=== PATIENT | female | born 1970 | race Caucasian/White ===

== ENCOUNTER 2016-12-18 06:29 | Day surgery (SDC) | payer BC ==
[~2016-12-18] VITALS: Ht 165.1 cm; Wt 84.1 kg
[~2016-12-18 06:29] MED LIST: FIORTAB4 PO; LEXA10TA PO; LISI-360 PO; OMEP20TA39 PO; ROPI.5 PO; ZANA4CAP PO
[2016-12-18 06:54] VITALS: BP 136/81; PULSE 59; RESP 20; TEMP 97.9; O2SAT 92
[2016-12-18] MEDS ORDERED: DULO1CAP2 PO (07:37)
[2016-12-18] MEDS ORDERED: SELE1TAB PO (07:37)
[2016-12-18] MEDS ORDERED: CHLO25TA2 PO (07:37)
[2016-12-18] MEDS ORDERED: MAGN500T5 PO (07:37)
[2016-12-18] MEDS ORDERED: VITA500S3 SL (07:37)
[2016-12-18] MEDS ORDERED: FLAX100013 (07:37)
[2016-12-18] MEDS ORDERED: POTA-163 PO (07:37)
[2016-12-18] MEDS ORDERED: ROPI0.5T PO (07:37)
[2016-12-18] MEDS ORDERED: PROP120C PO (07:37)
[2016-12-18] MEDS ORDERED: ATOR40TA16 PO (07:37)
[2016-12-18] MEDS ORDERED: FISH1000 (07:37)
[2016-12-18] MEDS ORDERED: CLON0.1T PO (07:37)
[2016-12-18] MEDS ORDERED: ESTR0.5T PO (07:37)
[2016-12-18] MEDS ORDERED: GABA300C5 PO (07:37)
[2016-12-18] MEDS ORDERED: LIOT5TAB3 PO (07:37)
[2016-12-18] MEDS ORDERED: LEVO.125 PO (07:37)
[2016-12-18] MEDS ORDERED: LEVE500T8 PO (07:37)
[2016-12-18] MEDS ORDERED: SODIUM CHLOR 0.9% 1000 ML INJ 1,000 ML IV SCH (07:45)
[2016-12-18 09:20] VITALS: BP 122/69; PULSE 56; RESP 16; TEMP 98.2; O2SAT 96
--- NOTE | 2016-12-18 09:26 | PD.RAD ---
Post Procedure Progress Note Pre Procedure Diagnosis: (1) Headache (2) Weakness Post Procedure Diagnosis: (1) Headache (2) Weakness Procedure Date: Dec 18, 2016 Supervising Radiologist: Chinmay Pozo Proceduralist/Assist: Cabrera Severino, RT(R), Kareem Nolasco, RT(R), Che Jaeger, RT(R) Anesthesia: Local Plan of Activity Patient to Unit: ROPU Patient Condition: Good See PACS Report for procedural detail/treatment Spinal Procedure Lumbar Puncture L3 Fluid Removal (CCs): 17 Fluid Description: Clear Puncture Time: 09:05 Findings: OP: 19.5 cmH2O CP: 12 cmH2O Chinmay Pozo MD Dec 18, 2016 09:26
[2016-12-18 10:44] LABS: GROSS BLOOD TUBE #1 1+ (0); GROSS BLOOD TUBE #2 1+ (0); SUPERNATE COLOR TUBE #1 CLEAR (CLEAR); SUPERNATE COLOR TUBE #2 CLEAR (CLEAR); SUPERNATE COLOR TUBE #3 CLEAR (CLEAR)
[2016-12-18 10:45] LABS: CSF LYMPHOCYTES 100 %; CSF NEUTROPHILS 0 %; GROSS BLOOD TUBE #3 1+ (0); GROSS BLOOD TUBE #4 TRACE (0); SUPERNATE COLOR TUBE #4 CLEAR (CLEAR); WBC TUBE #4 6 /MM3 (0-10)
[2016-12-18 11:25] VITALS: BP 96/55; PULSE 54; RESP 16; O2SAT 95
--- NOTE | 2016-12-18 12:48 | RADRPT ---
EXAM DATE/TIME: 12/18/2016 08:58 [facility] COMPARISON: No previous studies available for comparison. INDICATIONS : Patient presents with chronic headaches and seizures in need of lumbar puncture to rule out multiple sclerosis. MEDICAL HISTORY : HTN Seizures Spondylosis Fibromyalgia TIA Hasimotos antibodies SURGICAL HISTORY : Carpal tunnel Hysterectomy Lumpectomy ENCOUNTER: Initial ACUITY: > 1 year PAIN SCORE: 0/10 LOCATION: N/A LUMBAR PUNCTURE TIME: 09:05 hours FLUORO TIME: 1.2 minutes IMAGE SERIES: 1 ACCESS LEVEL: L3 FLUID: 17.5 cc of clear CSF was collected and sent to the laboratory for analysis. PROCEDURE : 1. Fluoroscopic guided lumbar puncture. The risks, benefits and alternatives to the procedure were explained and verbal and written consent w as obtained. The site was prepped in sterile fashion. Full sterile technique was used, including ca p, mask, sterile gloves and gown and a large sterile sheet. Hand hygiene and 2% chlorhexidine and/or betadine/alcohol prep was utilized per protocol for cutaneous antisepsis. The skin and subcutaneous tissues were infiltrated with local anesthetic solution. With fluoroscopic guidance the lumbar thecal sac was punctured at the level above. Opening pressures were obtained measuring 19.5 cm of water. The fluid described above was removed without difficulty. Closing pressures reduced to 12 cm of water. The patient tolerated the procedure well and there were no complications. CONCLUSION: 1. Uncomplicated fluoroscopically guided lumbar puncture. 2. Opening and closing pressures as above Chinmay Pozo MD on December 18, 2016 at 12:45 Board Certified Radiologist. This report was verified electronically.
[2016-12-19 12:38] LABS: ALBUMIN SERUM 3570 mg/dL (3200 - 4800); IGG CSF 2.1 mg/dL (<=8.1); IGG INDEX CSF 0.48 (<=0.85); IGG SERUM 822 mg/dL (767 - 1590); IGG/ALBUMIN CSF 0.11 (<=0.21); IGG/ALBUMIN SERUM 0.23 (<=0.40)
[2016-12-19 16:51] LABS: OLIGOCLONAL BANDING CSF 2 bands; OLIGOCLONAL BANDING INTERPRET 0 bands (<4); OLIGOCLONAL BANDING SERUM 2 bands
[2016-12-19 20:34] LABS: LYME IGG IMMUNOBLOT CSF None Detected bands (None Detected); LYME IGM IMMUNOBLOT CSF None Detected bands (None Detected)
[2016-12-20 23:52] LABS: VDRL CSF NON-REACTIVE (())
[2016-12-21 10:56] LABS: CSF CRYPTOCOCCUS AG CONF ND (NOT DETECTD)
== END 2016-12-18 11:30 | disposition home or self-care (01) ==
LOC: HROP 06:29 → HRIP 06:30 → HROP 11:30
PROVIDERS: ATTEND Psychiatry & Neurology Neurology
DX: G35 Multiple sclerosis (principal); I10 Essential (primary) hypertension; M79.7 Fibromyalgia; Z86.73 Personal history of transient ischemic attack (TIA), and cerebral infarction without residual deficits
CPT/HCPCS: 62270; 77003; 82040; 82042; 82784; 82945; 83873; 83916; 84157; 86403; 86592; 86618; 87015; 87070; 87102; 87116; 87205; 87206; 89051